=== PATIENT | female | born 1990 | race Caucasian/White ===

== ENCOUNTER 2019-01-04 03:02 | Emergency (ER) | payer OTHER ==
[~2019-01-04] VITALS: Ht 165.1 cm; Wt 87.1 kg
[2019-01-04 03:13] VITALS: Ht 165.1 cm; Wt 87.1 kg
[2019-01-04 04:51] VITALS: BP 132/81
== END 2019-01-04 04:51 | disposition home or self-care (01) ==
LOC: ED 03:02
DX: S82.002A Unspecified fracture of left patella, initial encounter for closed fracture (principal); J45.909 Unspecified asthma, uncomplicated; W18.39XA Other fall on same level, initial encounter; Y93.89 Activity, other specified; Y92.89 Other specified places as the place of occurrence of the external cause; Y99.8 Other external cause status
CPT/HCPCS: J1885; J3010; Q0092